=== PATIENT | male | born 1970 | race Caucasian/White ===

== ENCOUNTER 2019-04-06 08:50 | Inpatient (IN) | payer OTHER ==
--- NOTE | 2019-03-11 10:49 | HP ---
DATE OF ADMISSION: 04/06/2019 DATE OF DICTATION: 02/10/2019 DATE OF SURGERY: 04/06/2019 REASON FOR ADMISSION: A chronically-incarcerated ventral incisional hernia. BRIEF HISTORY: This is a 40-year-old gentleman who 5 years ago underwent a laparoscopic repair of a recurrent left inguinal scrotal hernia and a repair of his right inguinal hernia as well. He had no acute issues following that operation, but now presented to the office with a hernia at the level of his mid abdomen. He states the hernia has gotten larger, and now, he has pain in the area. He wishes to have this hernia repaired. He has no complaints of nausea or vomiting. No change in bowel habits. PAST MEDICAL HISTORY: No coronary disease, hypertension, or diabetes. PAST SURGICAL HISTORY: As above. MEDICATIONS: None. ALLERGIES: None. SOCIAL HISTORY: Patient is in pharmaceutical packaging. He does not drink. He smokes. No history of drug use. PHYSICAL EXAMINATION: Abdomen: Soft, nontender, nondistended. He has an upper midline diastasis (mild). He has well-healed laparoscopic inguinal hernia scars. He has no evidence for recurrence. He has a hernia at the level of his mid abdomen. The hernia extends into the camera site from the previous laparoscopy. The defects of the hernia are not appreciated due to its chronically incarcerated nature. The skin overlying the hernia is mildly thinned. The remainder of the abdominal examination is unremarkable. IMPRESSION/PLAN: Chronically-incarcerated ventral incisional hernia. This is a 40-year-old gentleman who has become more symptomatic from his midline abdominal wall hernia. At this point, I have discussed the various surgical approaches such as robotic, laparoscopic, open. We have also discussed the various techniques such as an intraperitoneal placement of mesh, a retrorectus location of mesh, an anterior rectus repair, as well as the various types of meshes. The patient has opted in hopes of having this repaired in an open fashion with placement of a retrorectus piece of mesh. The indications, alternatives, and complications of the procedure have been discussed at length. We will plan to obtain written consent the day of surgery. Norma ALICIA [id number] cc: Dr. Hermosillo
[2019-03-29 10:43] VITALS: BMI 32.5
[2019-04-06] MEDS ORDERED: TAMSULOSIN HCL 0.4 MG CAP ONE (09:33)
[2019-04-06] MEDS ORDERED: MIDAZOLAM HCL 2 MG/2 ML SINGLE DOSE VIAL ONE (10:48)
[2019-04-06] MEDS ORDERED: ceFAZolin SODIUM 1 GM VIAL ONE (12:04)
[2019-04-06] MEDS ORDERED: ONDANSETRON 4 MG/2 ML VIAL ONE ×2 (12:04→15:36)
[2019-04-06] MEDS ORDERED: DEXAMETHASONE SOD PHOSPHATE 4 MG/1 ML VIAL ONE (12:04)
[2019-04-06] MEDS ORDERED: LIDOCAINE HCL/PF 2% SDV 5ML VIAL ONE (12:04)
[2019-04-06] MEDS ORDERED: KETOROLAC TROMETHAMINE 30 MG/1 ML VIAL ONE (12:04)
[2019-04-06] MEDS ORDERED: PROPOFOL 20 ML ONE ×2 (12:08→12:51)
[2019-04-06] MEDS ORDERED: GLYCOPYRROLATE 0.2 MG/1 ML VIAL ONE (12:09)
[2019-04-06] MEDS ORDERED: NEOSTIGMINE METHYLSULFATE 0.5 MG/ML - 10 ML MDV ONE ×2 (12:09→14:19)
[2019-04-06] MEDS ORDERED: SUCCINYLCHOLINE CHLORIDE 200 MG/10 ML SYRINGE ONE (12:51)
[2019-04-06] MEDS ORDERED: fentaNYL CITRATE 250 MCG/5 ML VIAL ONE (12:51)
[2019-04-06] MEDS ORDERED: ROCURONIUM BROMIDE 50 MG/5 ML SYRINGE ONE (12:52)
[2019-04-06] MEDS ORDERED: EPHEDRINE SULFATE/0.9% NACL/PF 50 MG/10 ML SYRINGE NR ONE (13:38)
[2019-04-06] MEDS ORDERED: ALBUTEROL SO4 8 GM HFA INHALER IH ONE (14:19)
[2019-04-06] MEDS ORDERED: PROMETHAZINE HCL 25 MG/1 ML VIAL IVPUSH PRN (14:39)
[2019-04-06] MEDS ORDERED: ONDANSETRON 4 MG/2 ML VIAL IVPUSH PRN ×2 (14:39→16:50)
[2019-04-06] MEDS ORDERED: oxyCODONE HCL 5 MG TABLET PO PRN ×2 (14:39→16:50)
[2019-04-06] MEDS ORDERED: LACTATED RINGERS SOLUTION 1,000 ML IV SCH (14:45)
[2019-04-06] MEDS ORDERED: ACETAMINOPHEN 325 MG TABLET (FP) PO PRN (16:50)
[2019-04-06] MEDS ORDERED: MORPHINE SULFATE 10 MG/1 ML *VIAL IVPB PRN (16:50)
[2019-04-06] MEDS ORDERED: SODIUM CHLORIDE 1,000 ML IV SCH (17:00)
[2019-04-06] MEDS: IBUPROFEN 800 MG/8 ML IJ IVPB SCH ×2 (17:27→22:44)
[2019-04-06] MEDS ORDERED: diphenhydrAMINE HCL 25 MG CAPSULE (FP) PO SCH (22:00)
--- NOTE | 2019-04-06 23:59 | OP ---
DATE OF OPERATION: 04/06/2019 PREOPERATIVE DIAGNOSIS: Chronically incarcerated ventral/incisional abdominal wall hernia. POSTOPERATIVE DIAGNOSIS: Chronically incarcerated ventral/incisional abdominal wall hernia. PROCEDURE: Bilateral component separation repair of chronically incarcerated ventral/incisional abdominal wall hernia/partial omentectomy. OPERATING SURGEON: Praful Angeles MD WIRE HARNESS DESIGN ENGINEER: Shawn Patel MD ANESTHESIA: Norman Choe MD (general) HISTORY: A 48-year-old man who had had prior abdominal surgery, presents with a large hernia involving the central ring in the abdomen and expanding into the infraumbilical midline where an incision was made for prior hernia surgery. Indications, alternatives, possible complications reviewed. Consent obtained. DESCRIPTION OF PROCEDURE: Midline incision was made beginning above the umbilicus, through the umbilicus, and extending into the inferior midline. The subcutaneous tissues were . The hernia sac was easily encountered and cleaned to the level of the fascial ring. The sac was opened, found to contain portion of incarcerated omentum. Partial omentectomy ensued. A portion of omentum was delivered as part of the specimen. First directing our attention to the patient's right side, the posterior rectus sheath was from the overlying rectus muscle fibers, creating the retrorectus space. This dissection was carried out inferiorly, laterally, and superiorly, ultimately arriving at the junction of the oblique and transversus musculature. The overlying oblique musculature was from the underlying transversus using sharp dissection. The retrorectus space was then extended into this interspace , and the dissection was carried out even further inferiorly, laterally, and superiorly. Now directing our attention to the left side, the left posterior rectus sheath was from the overlying left rectus muscle fibers. The left retrorectus space was developed, again progressing in the inferior, lateral, and superior directions, and again, arriving at the junction of the left oblique musculature with the underlying left transversus. Separation of the left oblique from the underlying transversus musculature ensued. Again, the left retrorectus space dissection was carried out into this interspace, and the dissection was further carried out inferiorly, laterally, and superiorly. The posterior midline was re-created using a continuous 3-0 Vicryl suture, closing the abdomen. Bio-composite mesh was then made at the table using a piece of ProGrip mesh approximately 15 x 15 cm in size, which was sutured to a piece of similar size OviTex/FILIBERTO Bio mesh. This was accomplished using circumferential 3-0 Vicryl sutures. The mesh was then soaked and ultimately placed in the retrorectus space with the FILIBERTO Bio side down and the Versatex side up. The mesh was fixed circumferentially using counterpalpation and an AbsorbaTack. The wound was then irrigated, irrigant retrieved. The anterior rectus sheath was then approximated using interrupted 0 PDS suture, leaving the mesh entirely within the retrorectus space. After adequate hemostasis, the subcutaneous tissues were approximated using interrupted 3-0 chromic sutures. The subcuticular tissues were approximated using 4-0 Biosyn suture. The skin was reapproximated using metallic clips. Needle, sponge, instrument count correct. ESTIMATED BLOOD LOSS: Minimal. SPECIMEN: Portion of omentum. IMPLANT: Mesh. DRAINS: None. Patient tolerated the procedure; procedure was terminated. Norma [id number] YEN
[2019-04-07] MEDS: IBUPROFEN 800 MG/8 ML IJ IVPB SCH ×2 (05:54→10:06)
--- NOTE | 2019-04-07 09:29 | DS ---
DATE OF ADMISSION: 04/06/2019 DATE OF DISCHARGE: 04/07/2019 ADMITTING DIAGNOSIS: Complex incarcerated ventral/incisional hernia. DISCHARGE DIAGNOSIS: Complex incarcerated ventral/incisional hernia. BRIEF HISTORY: This is a 48-year-old male who was admitted to [facility] for surgical management of a complex incarcerated ventral/incisional hernia. He underwent repair of this hernia on April 06 utilizing mesh as well as component separation. Please reference Dr. Praful Angeles's operative report for further details. He was admitted to the hospital for postoperative pain control and expected ileus. DISPOSITION: The patient is being discharged home today, April 07. He is tolerating a diet. He is ambulating. He is voiding. At the time of his discharge, he is afebrile, and his pain is well-controlled with oral medications. DISCHARGE MEDICATIONS: He will go home with a new prescription for Percocet, which he will take as needed for pain. He will resume his home medications of multivitamin and p.r.n. Benadryl for sleep. FOLLOWUP: He will follow up with Dr. Angeles in approximately 2 weeks' time to be evaluated for staple removal. DISCHARGE INSTRUCTIONS: He is okay to walk. He is okay to climb stairs. He will not more than 20 pounds. He is okay to shower. He can advance to a regular diet at home. DO THOMAS RICE/[id number]
[2019-04-07] MEDS ORDERED: ENOXAPARIN NA (PORCINE) 40 MG/0.4 ML DISP.SYRIN SQ SCH (10:00)
[2019-04-07] MEDS ORDERED: PANTOPRAZOLE SODIUM 40 MG VIAL IVPUSH SCH (10:00)
[2019-04-07] MEDS ORDERED: DOCUSATE SODIUM 100 MG CAPSULE (FP) PO SCH (10:00)
[2019-04-07 10:05] VITALS: BP 120/76; PULSE 75; TEMP 97.9
--- NOTE | 2019-04-07 10:08 | PN ---
Progress Note (short form) - Note Progress Note: ANESTHESIA POSTOP 48 YO MALE POD#1 S/P HERNIA REPAIR, GA, PNB Patient resting in bed. No complaints. Pain adequately controlled. VSS, Afebrile Continue current care. Encouraged IS and ambulation. No anesthetic complications.
--- NOTE | 2019-04-08 18:20 | PATH ---
Surgical Pathology Report Patient Name: BOLIVAR TONG Med. Rec. #: [id number] /Age/Gender: 1970 (Age: 48) / M Account: [id number] Location: [facility] MED-SURG Taken: 04/06/2019 Received: 04/06/2019 Reported: 04/08/2019 Physicians: Praful Angeles M.D. Specimen(s) Received HERNIA SAC WITH PORTION OF OMENTUM Clinical History Incarcerated ventral incisional hernia Final Diagnosis HERNIA SAC WITH PORTION OF OMENTUM, VENTRAL HERNIA REPAIR WITH MESH: HERNIA SAC AND BENIGN OMENTAL ADIPOSE TISSUE. Electronically Signed Alka Villagomez M.D. Gross Description Received in formalin labeled "hernia sac with portion of omentum" is a fibromembranous tissue consistent with hernia sac and omental adipose tissue measuring 7 x 5 x 3 cm in aggregate. Risk Assessment Consultant sections are submitted in one cassette. BERNA/04/07/2019 yany/04/07/2019
== END 2019-04-07 13:02 | disposition home or self-care (01) | DRG 355 ==
LOC: FASU 08:50 → FM/S 16:32
PROVIDERS: ADMIT Surgery; ATTEND Surgery
PROC: 0DBU0ZZ Excision of Omentum, Open Approach (ICD-10-PCS; 2019-04-06)
PROC: 0WUF0JZ Supplement Abdominal Wall with Synthetic Substitute, Open Approach (ICD-10-PCS; principal; 2019-04-06 11:00)
DX: K43.0 Incisional hernia with obstruction, without gangrene (principal)
CPT/HCPCS: 88302-TC; 94760; J7030